=== PATIENT | male | born 1960 | race Caucasian/White ===

== ENCOUNTER 2021-04-08 02:59 | Emergency (ER) | payer MEDICARE ==
[~2021-04-08] VITALS: Ht 185.4 cm; Wt 83.9 kg
[~2021-04-08 02:59] MED LIST: BENZ2AMP IJ
--- NOTE | 2021-04-08 04:28 | NUR ---
PT BROCK. FOR CHEST RAO BY ULICESASE 2 DAYS AGO. PT STATES CONVENTIONAL OVEN FELL ONTO L FOOT. PT NOTICED SWELLING AND PAIN TO LEFT FOOT TODAY.
[2021-04-08] MEDS ORDERED: BACITRACIN ZINC OINT PACKET 1 EA PACKET TP ONE ×2 (05:00→05:03)
[2021-04-08] MEDS ORDERED: TDAP [DIPH/PERTUSSIS/TET] 0.5 ML VIAL IM ONE ×3 (05:00→05:15)
[2021-04-08] MEDS ORDERED: IBUP-1955 PO (05:10)
--- NOTE | 2021-04-08 05:26 | NUR ---
FOLLOWED UP WITH KRISHNA.
[2021-04-08] MEDS ORDERED: CEPH500C2 PO (05:50)
--- NOTE | 2021-04-08 05:50 | NUR ---
CALLED KRISHNA FOR X RAY READ
[2021-04-08] MEDS ORDERED: ONDANSETRON 4 MG TAB.RAPDIS SL ONE (06:00)
[2021-04-08] MEDS ORDERED: HYDROCODONE/APAP 5/325MG TABLET PO ONE (06:00)
[2021-04-08] MEDS ORDERED: HYDROCODONE/APAP 5/325MG TABLET ONE (06:01)
[2021-04-08] MEDS ORDERED: ONDANSETRON 4 MG TAB.RAPDIS ONE (06:02)
[2021-04-08 06:14] VITALS: BP 149/86
--- NOTE | 2021-04-08 06:15 | NUR ---
Patient discharged to home in stable condition. Written and verbal after care instructions given. Rx's given. Patient verbalizes understanding of instruction.
== END 2021-04-08 06:16 | disposition home or self-care (01) ==
LOC: ER 03:04
DX: S90.02XA Contusion of left ankle, initial encounter (principal); S90.32XA Contusion of left foot, initial encounter; L03.116 Cellulitis of left lower limb; F31.9 Bipolar disorder, unspecified; F10.10 Alcohol abuse, uncomplicated; Y90.9 Presence of alcohol in blood, level not specified; Z79.899 Other long term (current) drug therapy; X58.XXXA Exposure to other specified factors, initial encounter; Y93.89 Activity, other specified; Y92.89 Other specified places as the place of occurrence of the external cause; Y99.8 Other external cause status
CPT/HCPCS: 73610; 73630; 90471; 90715; 99284; Q0162

== ENCOUNTER 2022-02-04 03:58 | Emergency (ER) | payer MEDICARE ==
[~2022-02-04] VITALS: Ht 182.9 cm; Wt 78.9 kg
[~2022-02-04 03:58] MED LIST changes: +CEPH500C2 PO; +IBUP-1955 PO
--- NOTE | 2022-02-04 04:00 | NUR ---
BIBS FOR C/O ALLERGIC REACTION WITH SWOLLEN EYES TO BEE STING YESTERDAY. PT A/OX4. TOLERATING R/A WELL WITH NO RESP DISTRESS. CONNECTED PT TO POX AND MONITOR. SAFETY MESURES AT PLACE.
[2022-02-04] MEDS ORDERED: methylPREDNISolone SOD SUCC 125 MG/2ML VIAL ONE (04:12)
[2022-02-04] MEDS ORDERED: EPINEPHRINE (1:1000) 1 MG/ML AMPUL ONE (04:12)
[2022-02-04] MEDS ORDERED: diphenhydrAMINE HCL 50 MG/ML VIAL ONE (04:12)
[2022-02-04] MEDS ORDERED: EPINEPHRINE (1:1000) MDV 30 MG/30ML VIAL SUBCUT ONE (04:30)
[2022-02-04] MEDS ORDERED: methylPREDNISolone SOD SUCC 125 MG/2ML VIAL IV ONE (04:30)
[2022-02-04] MEDS ORDERED: IV NS 0.9% 1,000 ML BAG IV ONE (04:30)
[2022-02-04] MEDS ORDERED: diphenhydrAMINE HCL 50 MG/ML VIAL IV ONE (04:30)
[2022-02-04] MEDS ORDERED: EPIN0.3P3 IM (05:37)
--- NOTE | 2022-02-04 06:00 | NUR ---
PT NOTED WITH SIGNIFCANTLY LESS FACIAL SWELLING AND REDNESS
--- NOTE | 2022-02-04 06:02 | NUR ---
Patient discharged to home in stable condition. Written and verbal after care instructions given. Patient verbalizes understanding of instruction. PT ambulatory with a steady gait IV removed. Catheter intact and site benign. Pressure and 4x4 applied to site. No bleeding noted.
[2022-02-04 06:04] VITALS: BP 131/74
== END 2022-02-04 06:02 | disposition home or self-care (01) ==
LOC: ER 04:00
DX: T78.40XA Allergy, unspecified, initial encounter (principal); T63.441A Toxic effect of venom of bees, accidental (unintentional), initial encounter; F31.9 Bipolar disorder, unspecified; Z91.030 Bee allergy status; Z91.018 Allergy to other foods; Z60.2 Problems related to living alone; Z79.899 Other long term (current) drug therapy; Y92.89 Other specified places as the place of occurrence of the external cause
CPT/HCPCS: 99284; 96374; 96361; 96375; 96372; J1200; J0171 ×2; J2930; J7030 ×2